=== PATIENT | female | born 1990 | race Caucasian/White ===

== ENCOUNTER 2022-01-27 06:47 | Observation (INO) | payer OTHER, SELFPAY ==
[2022-01-27] MEDS: TERBUTALINE 1 MG/ML VIAL 0.25 MG SUBCUT (07:28)
--- NOTE | 2022-01-27 07:51 | PM.PROC.1 ---
Procedures Date/Time Date of procedure: 01/27/22 Time of procedure: 07:52 General Procedure description: Patient is a 32-year-old 1 para 0 EDC 7/15 at 37 weeks 3 days who was found to have persistent breech presentation by her nurse shredded filler cigar maker machine who referred her for external cephalic version. The procedure was discussed with the patient. Risk of needing an emergency for decrease in heart rate. Possible onset of labor or rupture membranes that could require delivering the baby either vaginally if turned or section. Possible separation of placenta that could result in bleeding, pain and result in needing to proceed with delivery of the baby. Consent form signed and questions answered. Patient had a reactive nonstress test. Baseline heart rate of 140 with accelerations, no decelerations. No contractions on the monitor. Blood pressure 138/84, pulse 80, temperature 36.5? Ultrasound confirms fetus in breech presentation with normal amniotic fluid. Anterior right placenta with early grade 3 changes. Patient received terbutaline 0.25 mg subQ. With 1 attempt the fetus was turned to vertex. Patient tolerated the procedure well. The fetus was monitored for greater than 1 hour. There were possible variables or just return to baseline so she was monitored for longer. No bleeding. No pain. Good movement. Overall reassuring monitoring. Routine precautions reviewed with the patient to call immediately if she has vaginal bleeding, increasing abdominal pain, leakage of fluid, decreased movement, regular contractions. Complications: none
== END 2022-01-27 09:30 | disposition home or self-care (01) ==
PROVIDERS: Admitting Provider Specialist; Referring Provider Specialist; Visit Provider Specialist
DX: O32.1XX0 Maternal care for breech presentation, not applicable or unspecified (principal); Z3A.37 37 weeks gestation of pregnancy
CPT/HCPCS: 59025; 59050; 59412; 76815; 96372; G0378; G0379